=== PATIENT | male | born 1935 | race Caucasian/White ===

== ENCOUNTER 2025-02-02 10:58 | Inpatient (IN) | payer MEDICARE, MEDICAID ==
[~2025-02-02] VITALS: Ht 170.1 cm; Wt 98.0 kg
[2025-02-02] MEDS ORDERED: LIPITOR40 MG PO (13:50)
[2025-02-02] MEDS ORDERED: XARE20MG PO (13:50)
[2025-02-02] MEDS ORDERED: GLUCOPHAGE500 MG PO (13:51)
[2025-02-02] MEDS ORDERED: LASIX20 MG PO (13:52)
[2025-02-02] MEDS ORDERED: CLEOCIN HCL300 MG PO (13:54)
[2025-02-02] MEDS ORDERED: MG-AL HYDROXIDE/SIMETICONE 30 ML UDC PO PRN (15:20)
[2025-02-02] MEDS ORDERED: Magnesium Hydroxide 30 ML UDC PO PRN (15:20)
[2025-02-02] MEDS ORDERED: ACETAMINOPHEN 325 MG TAB PO PRN (15:20)
[2025-02-02 15:28] VITALS: BP 120/62
[2025-02-02] MEDS ORDERED: FOAM BANDAGE 1 EACH BANDAGE T ONE ×2 (16:13→20:30)
[2025-02-02] MEDS ORDERED: metFORMIN Hydrochloride 500 MG TAB PO SCH (16:30)
[2025-02-02] MEDS ORDERED: FUROSEMIDE 20 MG TAB PO SCH (18:00)
[2025-02-02 20:00] VITALS: BP 113/63
[2025-02-02] MEDS ORDERED: Menthol/Zinc Oxide 4 GM THIN T SCH (21:00)
[2025-02-02] MEDS ORDERED: Mirtazapine 15 MG TAB PO SCH (21:00)
[2025-02-02] MEDS ORDERED: Clindamycin Hydrochloride 150 MG CAP PO SCH (22:00)
[2025-02-02] MEDS ORDERED: ATORVASTATIN CALCIUM 40 MG TABLET PO SCH (22:00)
[2025-02-02] MEDS ORDERED: Memantine Hydrochloride 5 MG TAB PO SCH (22:00)
[2025-02-03 06:14] LABS: BASO % 0.3 % (0.0-1.0); EOS # 0.2 10*3/uL (0.0-0.4); EOS % 3.1 % (1.0-4.0); HEMATOCRIT 23.9 % (42.0-52.0); MEAN CELL VOLUME 94.1 fl (80.0-94.0); MEAN CORPUSCULAR HGB 29.1 pg (27.0-31.0); MEAN PLATELET VOLUME 8.4 fl (9.6-12.3); MONO # 0.7 10*3/uL (0.1-1.0); MONO % 9.1 % (3.0-9.0); NEUT # 5.6 10*3/uL (2.3-7.9); NEUT % 76.9 % (47.0-73.0); PLATELET COUNT AUTOMATED 380 10*3/uL (130-400); RED BLOOD COUNT 2.54 10*6/uL (4.50-5.90); WHITE BLOOD COUNT 7.3 10*3/uL (4.8-10.8)
[2025-02-03 06:42] LABS: ALKALINE PHOSPHATASE 107 U/L (46-116); BUN 20 mg/dl (9-23); CHLORIDE 105 mmol/L (98-107); CHOLESTEROL 86 mg/dL (<200); LDL CHOLESTEROL 46 mg/dL (9-159); POTASSIUM 3.6 mmol/L (3.4-5.1); SGPT/ALT 13 U/L (5-49); TOTAL PROTEIN 5.8 gm/dL (6.0-8.0); TRIGLYCERIDES 45 mg/dl (<150)
[2025-02-03 07:35] LABS: VITAMIN D, 25-HYDROXY 49.8 ng/mL (30-100)
[2025-02-03 08:00] VITALS: BP 104/60
[2025-02-03] MEDS ORDERED: Rivastigmine Tartrate 4.6 MG/24 HR PATCH T SCH (09:00)
[2025-02-03] MEDS ORDERED: Memantine Hydrochloride 5 MG TAB PO SCH (09:00)
[2025-02-03] MEDS ORDERED: Pneumococcal Vaccine Polyval 0.5 ML SYR IM SCH (10:00)
[2025-02-03] MEDS ORDERED: RIVAROXABAN 20 MG TAB PO SCH (10:00)
[2025-02-03] MEDS ORDERED: ALGINATE DRESSING/CME-CELL 1 EACH BANDAGE T ONE (10:16)
[2025-02-03] MEDS ORDERED: ALGINATE DRESSING/CME-CELL 4X4 1 EACH BANDAGE T ONE (10:16)
[2025-02-03 20:00] VITALS: BP 113/65
[2025-02-03] MEDS ORDERED: RAMELTEON 8 MG TAB PO SCH (21:00)
[2025-02-03] MEDS ORDERED: Menthol/Zinc Oxide 4 GM THIN T SCH (22:00)
[2025-02-04 06:34] LABS: BASO % 0.3 % (0.0-1.0); EOS # 0.4 10*3/uL (0.0-0.4); EOS % 4.1 % (1.0-4.0); HEMATOCRIT 26.1 % (42.0-52.0); MEAN CORPUSCULAR HGB 28.6 pg (27.0-31.0); MEAN CORPUSCULAR HGB CONC 29.5 g/dl (33.0-37.0); MEAN PLATELET VOLUME 8.7 fl (9.6-12.3); MONO # 1.3 10*3/uL (0.1-1.0); MONO % 12.5 % (3.0-9.0); NEUT # 7.8 10*3/uL (2.3-7.9); NEUT % 74.8 % (47.0-73.0); PLATELET COUNT AUTOMATED 368 10*3/uL (130-400); RED BLOOD COUNT 2.69 10*6/uL (4.50-5.90); WHITE BLOOD COUNT 10.4 10*3/uL (4.8-10.8)
[2025-02-04 09:26] VITALS: BP 117/63
[2025-02-04] MEDS ORDERED: ALGINATE DRESSING/CME-CELL 4X4 1 EACH BANDAGE T ONE (09:54)
[2025-02-04] MEDS ORDERED: MUPIROCIN 15 GM TUBE T SCH (10:00)
[2025-02-04] MEDS ORDERED: Menthol/Zinc Oxide 4 GM THIN T PRN (10:20)
[2025-02-04 20:00] VITALS: BP 104/55
[2025-02-04] MEDS ORDERED: CEFDINIR 300 MG CAP PO SCH (21:00)
[2025-02-04] MEDS ORDERED: Clindamycin Hydrochloride 150 MG CAP PO SCH (22:00)
[2025-02-05 05:59] LABS: BILIRUBIN Negative (Negative); BLOOD Negative (Negative); CLARITY Clear (Clear); COLOR Yellow (Yellow); GLUCOSE Negative (Negative); KETONE Negative (Negative); LEUKO ESTERASE 3+ (Negative); NITRITE Negative (Negative); PH 6.5 (4.5-8.0)
[2025-02-05 07:49] LABS: BACTERIA 3+; TRIP PHOS CRYSTALS 1+; WBC TNTC wbc/hpf (0-5)
[2025-02-05 08:00] VITALS: BP 120/52
[2025-02-05] MEDS ORDERED: Rivastigmine Tartrate 9.5 MG/24 HR PATCH T SCH (09:00)
[2025-02-05 20:00] VITALS: BP 144/69
[2025-02-06 06:05] LABS: ALKALINE PHOSPHATASE 96 U/L (46-116); BUN 22 mg/dl (9-23); CHLORIDE 106 mmol/L (98-107); POTASSIUM 3.5 mmol/L (3.4-5.1); SGPT/ALT 12 U/L (5-49); TOTAL PROTEIN 5.7 gm/dL (6.0-8.0)
[2025-02-06 06:17] LABS: BASO % 0.4 % (0.0-1.0); EOS # 0.3 10*3/uL (0.0-0.4); EOS % 3.6 % (1.0-4.0); HEMATOCRIT 23.4 % (42.0-52.0); MEAN CELL VOLUME 95.5 fl (80.0-94.0); MEAN CORPUSCULAR HGB 28.6 pg (27.0-31.0); MEAN CORPUSCULAR HGB CONC 29.9 g/dl (33.0-37.0); MEAN PLATELET VOLUME 8.6 fl (9.6-12.3); MONO # 0.5 10*3/uL (0.1-1.0); MONO % 6.4 % (3.0-9.0); NEUT # 6.2 10*3/uL (2.3-7.9); NEUT % 77.4 % (47.0-73.0); PLATELET COUNT AUTOMATED 377 10*3/uL (130-400); RED BLOOD COUNT 2.45 10*6/uL (4.50-5.90); RED CELL DISTRI WIDTH 16.3 % (0-14.5)
[2025-02-06 08:00] VITALS: BP 102/63
[2025-02-06 20:00] VITALS: BP 105/53
[2025-02-07 06:28] LABS: BASO % 0.4 % (0.0-1.0); EOS # 0.3 10*3/uL (0.0-0.4); EOS % 4.1 % (1.0-4.0); HEMATOCRIT 23.9 % (42.0-52.0); MEAN CELL VOLUME 94.8 fl (80.0-94.0); MEAN CORPUSCULAR HGB 27.8 pg (27.0-31.0); MEAN CORPUSCULAR HGB CONC 29.3 g/dl (33.0-37.0); MEAN PLATELET VOLUME 8.2 fl (9.6-12.3); MONO # 0.5 10*3/uL (0.1-1.0); NEUT # 5.2 10*3/uL (2.3-7.9); NEUT % 75.9 % (47.0-73.0); PLATELET COUNT AUTOMATED 326 10*3/uL (130-400); RED BLOOD COUNT 2.52 10*6/uL (4.50-5.90); RED CELL DISTRI WIDTH 16.4 % (0-14.5); WHITE BLOOD COUNT 6.8 10*3/uL (4.8-10.8)
[2025-02-07 08:16] VITALS: BP 133/69
[2025-02-07 19:14] VITALS: BP 135/73
[2025-02-07] MEDS ORDERED: Memantine Hydrochloride 10 MG TAB PO SCH (21:00)
[2025-02-08 06:43] LABS: BASO % 0.4 % (0.0-1.0); EOS # 0.3 10*3/uL (0.0-0.4); EOS % 4.3 % (1.0-4.0); HEMATOCRIT 23.5 % (42.0-52.0); MEAN CELL VOLUME 95.5 fl (80.0-94.0); MEAN CORPUSCULAR HGB 28.5 pg (27.0-31.0); MEAN CORPUSCULAR HGB CONC 29.8 g/dl (33.0-37.0); MEAN PLATELET VOLUME 8.4 fl (9.6-12.3); MONO # 0.6 10*3/uL (0.1-1.0); MONO % 7.1 % (3.0-9.0); NEUT # 5.9 10*3/uL (2.3-7.9); NEUT % 74.4 % (47.0-73.0); PLATELET COUNT AUTOMATED 342 10*3/uL (130-400); RED BLOOD COUNT 2.46 10*6/uL (4.50-5.90); RED CELL DISTRI WIDTH 16.4 % (0-14.5); WHITE BLOOD COUNT 7.9 10*3/uL (4.8-10.8)
[2025-02-08 08:20] VITALS: BP 121/71
[2025-02-08] MEDS ORDERED: Memantine Hydrochloride 5 MG TAB PO SCH (09:00)
[2025-02-08] MEDS ORDERED: MEMANTINE HCL10 MG PO (09:50)
[2025-02-08] MEDS ORDERED: RIVASTIGMINE1 EAC1 T (09:50)
[2025-02-08] MEDS ORDERED: MIRTAZAPINE15 M2 PO (09:50)
[2025-02-08 20:00] VITALS: BP 114/56
[2025-02-08] MEDS ORDERED: Memantine Hydrochloride 10 MG TAB PO SCH (21:00)
[2025-02-09 08:00] VITALS: BP 116/50
[2025-02-09] MEDS ORDERED: FERROUS SULFATE 325 MG TAB PO SCH (10:00)
[2025-02-09] MEDS ORDERED: OMNICEF300 MG PO (13:02)
== END 2025-02-09 13:23 | DRG 885 ==
LOC: 3N 10:58
PROVIDERS: Counselor Professional; Internal Medicine; Registered Nurse; Student in an Organized Health Care Education/Training Program; ADMIT Psychiatry & Neurology Psychiatry; ATTEND Psychiatry & Neurology Psychiatry
PROC: GZHZZZZ Group Psychotherapy (ICD-10-PCS; principal; 2025-02-02)
PROC: GZ51ZZZ Individual Psychotherapy, Behavioral (ICD-10-PCS; 2025-02-02)
DX: F33.2 Major depressive disorder, recurrent severe without psychotic features (principal); E43 Unspecified severe protein-calorie malnutrition; I50.9 Heart failure, unspecified; I48.91 Unspecified atrial fibrillation; S81.802A Unspecified open wound, left lower leg, initial encounter; D75.839 Thrombocytosis, unspecified; D64.9 Anemia, unspecified; E78.5 Hyperlipidemia, unspecified; R73.03 Prediabetes; G30.9 Alzheimer's disease, unspecified; F02.80 Dementia in other diseases classified elsewhere, unspecified severity, without behavioral disturbance, psychotic disturbance, mood disturbance, and anxiety; Z87.891 Personal history of nicotine dependence; Z80.1 Family history of malignant neoplasm of trachea, bronchus and lung; Z83.3 Family history of diabetes mellitus; Z82.3 Family history of stroke; X58.XXXA Exposure to other specified factors, initial encounter; Y93.89 Activity, other specified; Y92.89 Other specified places as the place of occurrence of the external cause; Y99.8 Other external cause status; Z68.33 Body mass index [BMI] 33.0-33.9, adult